=== PATIENT | female | born 1950 | race Caucasian/White ===

== ENCOUNTER 2016-08-03 15:49 | Inpatient (IN) | payer MEDICARE, OTHER ==
[~2016-08-03] VITALS: Ht 154.9 cm; Wt 62.1 kg
--- NOTE | 2016-08-03 16:00 | NUR ---
ARRIVE TO ROOM VIA WHEELCHAIR FROM DOCTOR'S OFFICE. DENIES SOB OR PAIN. AT BEDSIDE. XRAY ARRIVE TO ROOM FOR CHEST XRAY. SCDs IN ROOM, REFUSE TO WEAR AT THIS TIME. CONTROLLED A-FIB 82bpm ON TELEMETRY. IV SITED LT HAND 22G SUCCESSFUL FIRST ATTEMPT. BED LOCKED AND LOW. CALL LIGHT NOT WORKING. MAINTENANCE NOTIFIED. CONTINUE ADMISSION PROCESS.
[2016-08-03] MEDS ORDERED: HYDRALAZINE HCL50 MG PO (16:25)
[2016-08-03] MEDS ORDERED: DIOVAN320 MG PO (16:26)
[2016-08-03] MEDS ORDERED: JANTOVEN3 MG PO (16:28)
[2016-08-03] MEDS ORDERED: KLOR-CON 1010 MEQ PO (16:29)
[2016-08-03] MEDS ORDERED: GLUCOTROL XL 5 M5 MG PO (16:29)
[2016-08-03] MEDS ORDERED: TRADJENTA5 MG PO (16:30)
[2016-08-03] MEDS ORDERED: FUROSEMIDE40 MG PO (16:30)
[2016-08-03] MEDS ORDERED: LIPITOR10 MG PO (16:31)
[2016-08-03] MEDS ORDERED: GLUCOPHAGE500 MG PO (16:32)
[2016-08-03] MEDS ORDERED: COREG6.25 MG PO (16:32)
[2016-08-03] MEDS ORDERED: VITAMIN E400 UNI2 PO (16:34)
[2016-08-03] MEDS ORDERED: LANTUS SOL100 UNIT/1 SC (16:34)
[2016-08-03] MEDS ORDERED: OMEGA 3 FISH OI1 CAP PO (16:35)
[2016-08-03] MEDS ORDERED: BAYER CHEWABLE81 MG PO (16:35)
[2016-08-03] MEDS ORDERED: ACETAMINOPHEN325 MG PO (16:36)
[2016-08-03] MEDS ORDERED: POTASSIUM99 M1 PO (16:37)
[2016-08-03 16:59] LABS: BASOPHILS 0.1 % (0.0-2.0); EOSINOPHILS 1.8 % (0-7); HEMATOCRIT 34.6 % (36.0-48.0); HEMOGLOBIN 11.9 g/dL (12-16); IMMATURE GRANULOCYTES 0.9 % (0-5); LYMPHOCYTES 9.5 % (15-50); MCH 30.1 pg (26.0-34.0); MCHC 34.4 g/dL (31.0-37.0); MCV 87.6 fL (80.0-100.0); MEAN PLATELET VOLUME 9.9 fL (7.4-10.4); MONOCYTES 5.8 % (2-11); NEUTROPHILS 81.9 % (40-80); RBC 3.95 10x6/uL (4.00-5.40); RDW 14.7 % (11.5-14.5)
[2016-08-03 17:02] LABS: PLATELET COUNT 202 10x3/uL (130-400)
[2016-08-03 17:18] LABS: INR 1.04 (0.85-1.17); PROTIME 13.4 SECONDS (11.6-15.0)
[2016-08-03 17:39] LABS: CALC OSMOLALITY 258 mosm/kg (275-300); CALCIUM 8.8 mg/dL (8.5-10.1); CARBON DIOXIDE 27.2 mmol/L (21.0-32.0); CHLORIDE - SERUM 90 mmol/L (98-107); CREATININE - SERUM 0.8 mg/dL (0.6-1.3); POTASSIUM - SERUM 3.4 mmol/L (3.5-5.1); SODIUM 125 mmol/L (136-145); T4 THYROXIN - FREE 1.49 ng/dL (0.76-1.46); UREA NITROGEN 15 mg/dL (7-18); eGFR NON AFRICAN AMERICAN 76 mL/min (90-120)
[2016-08-03 17:40] LABS: GLUCOSE 214 mg/dL (74-106)
[2016-08-03 18:33] VITALS: BP 105/72; BMI 25.9
[2016-08-03 18:42] LABS: THYROID STIMULATING HORMONE 0.84 uIU/mL (0.36-3.74); URIC ACID 4.1 mg/dL (2.6-7.2)
[2016-08-03 23:34] LABS: CREATININE - URINE 27.9 mg/dL (30-125)
[2016-08-03 23:37] LABS: APPEARANCE CLEAR (CLEAR); BILIRUBIN NEGATIVE (NEGATIVE); COLOR YELLOW (YELLOW); GLUCOSE 500 mg/dL (NEGATIVE); KETONE NEGATIVE (NEGATIVE); LEUKOCYTE ESTERASE TRACE (NEGATIVE); NITRITE NEGATIVE (NEGATIVE); PROTEIN NEGATIVE (NEGATIVE); SPECIFIC GRAVITY 1.005 (1.005-1.020); UROBILINOGEN NORMAL (NORMAL)
[2016-08-03 23:41] LABS: BACTERIA FEW /hpf (NONE SEEN); CALCIUM OXALATE CRYSTALS RARE /hpf (NONE SEEN); EPITHELIAL CELLS OCC /hpf (0-5); HYALINE CAST RARE /lpf (NONE SEEN); RED CELLS - URINE OCC /hpf (0-5)
--- NOTE | 2016-08-03 23:55 | NUR ---
NURSE ROUNDS 20:00 - DISCUSSED WITH PTS THEIR CONCERN ABOUT HER PO HOME MEDICATIONS. BECAUSE PT WAS ADMITTED UNDER OBSERVATION STATUS, MEDICARE WILL NOT PAY FOR ANY PO MEDICATIONS. PT AND LIVE IN [place], AND THEY DID NOT BRING HER HOME MEDICATIONS. I EXPLAINED THAT WE CAN MANAGE HER B/P NEEDED BY IV HYDRALAZINE IF NEEDED, AND WE WILL MANAGE PTS BLOOD GLUCOSE WITH S/S INSULIN. PT IS LETHARGIC, AFEBRILE AT THIS TIME, DENIES ANY NEEDS OTHER THAN WANTING TO SLEEP. PTS DID LEAVE TO RETURN HOME TO CHECK ON THEIR DOG AND BRING HER OWN MEDICATIONS FROM HOME IN THE AM BEFORE THE DOCTORS ROUND. U/A COLLECTED ORDERED. CONTINUE TO MONITOR CLOSELY.
[2016-08-04] VITALS: BP 164/96
[2016-08-04 04:00] VITALS: BP 188/85
[2016-08-04 06:40] LABS: MAGNESIUM - SERUM 1.4 mg/dL (1.8-2.4); PHOSPHOROUS 2.5 mg/dL (2.5-4.9)
[2016-08-04 08:20] VITALS: BP 191/83
--- NOTE | 2016-08-04 09:37 | NUR ---
Patient Name: BERE ROBLES Admission Status: Urgent Accout number: [id number] Admission Date: 08-04-2016 : 1950 Admission Diagnosis: Attending: RYAN Current LOS: 1 Anticipated DC Date: Planned Disposition: Home Primary Insurance: MEDICARE A & B LATE ENTRY FROM 08-03-16, 1650 HOURS Discharge Planning Comments: * Is the patient Alert and Oriented? Yes 0 * How many steps to enter\exit or inside your home? 7 0 * PCP DR. KASHMIR [facility] [place] 0 * Pharmacy [facility] [place] OR [facility] ORDER 0 * Preadmission Environment Home with Family 0 * ADLs Independent 0 * Equipment CPAP 0 * Other Equipment [facility] - MEDICAL EQUIPMENT PROVIDER 0 * List name and contact numbers for known caregivers / representatives who currently or will assist patient after discharge: CHRISTI ROBLES, SPOUSE, 0 * Community resources currently utilized None 0 * Please name any agencies selected above. NONE 0 * Additional services required to return to the preadmission environment? No 0 * Can the patient safely return to the preadmission environment? Yes 0 * Has this patient been hospitalized within the prior 30 days at any hospital? Yes 0 CM RECEIVED REQUEST TO MEET WITH PT ON 08-03-16 AT APPROXIMATELY 1650 HOURS. CM MET WITH PT AND SPOUSE IN ROOM TO DISCUSS DISCHARGE PLANNING AND NEEDS. PT REPORTS ADMITTED TO OBSERVATION AND CONCERNED THAT INSURANCE NOT PAYING FOR HOME MEDICATIONS. CM VERIFIED THAT IF PT IS IN OBSERVATION STATUS, MEDICARE WILL NOT PAY FOR HOME MEDICATIONS ADMINISTERED BY THE HOSPITAL. 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 PT REPORTS LIVING AT HOME INDEPENDENTLY WITH HER SPOUSE. PT HAS CPAP PROVIDED BY [facility]. PT HAS NO OUTSIDE SERVICES ASSISTING IN THE HOME. CM DISCUSSED AVAILABILITY OF HOME HEALTH, REHAB SERVICES AND MEDICAL EQUIPMENT. PT DENIES DISCHARGE NEEDS, REPORTS HER SPOUSE WILL PICK HER UP FOR DISCHARGE HOME. PT PLANS TO RETURN HOME WITH SPOUSE, NO ANTICIPATED NEEDS. CM TO FOLLOW AND ASSIST NEEDED. Information Technology Professor: Micheal Mario
[2016-08-04 10:49] LABS: CALC OSMOLALITY 268 mosm/kg (275-300); CALCIUM 8.6 mg/dL (8.5-10.1); CARBON DIOXIDE 25.3 mmol/L (21.0-32.0); CHLORIDE - SERUM 96 mmol/L (98-107); CREATININE - SERUM 0.8 mg/dL (0.6-1.3); GLUCOSE 218 mg/dL (74-106); POTASSIUM - SERUM 3.1 mmol/L (3.5-5.1); SODIUM 131 mmol/L (136-145); eGFR NON AFRICAN AMERICAN 76 mL/min (90-120)
[2016-08-04 10:50] LABS: BASOPHILS 0.3 % (0.0-2.0); EOSINOPHILS 4.9 % (0-7); HEMATOCRIT 31.9 % (36.0-48.0); HEMOGLOBIN 10.9 g/dL (12-16); IMMATURE GRANULOCYTES 1.2 % (0-5); LYMPHOCYTES 17.4 % (15-50); MCH 30.1 pg (26.0-34.0); MCHC 34.2 g/dL (31.0-37.0); MCV 88.1 fL (80.0-100.0); MEAN PLATELET VOLUME 10.6 fL (7.4-10.4); MONOCYTES 9.2 % (2-11); PLATELET COUNT 237 10x3/uL (130-400); RBC 3.62 10x6/uL (4.00-5.40)
[2016-08-04 10:51] LABS: UREA NITROGEN 9 mg/dL (7-18)
[2016-08-04 11:08] LABS: WBC 6.7 10x3/uL (4.8-10.8)
[2016-08-04 12:18] VITALS: Ht 154.9 cm; Wt 62.1 kg
--- NOTE | 2016-08-04 14:00 | NUR ---
ARRIVE BACK TO ROOM. SEDATED. AROUSES TO VOICE AND STIMULI. AT BEDSIDE. DENIES PAIN OR SOB. BP-136/76, R-16, P-83, O2-96% RA. CONTROLLED A-FIB ON TELEMETRY. RADIAL PULSE +2 BILATERALLY. PEDAL PULSE +1 NO CHANGE BILATERALLY. TR BAND TO RT WRIST. FREE FROM BLEEDING. NO HEMATOMA. CONTINUE PLAN OF CARE. BED LOCKED AND LOW. CALL LIGHT IN REACH. TWO SIDERAILS UP.
[2016-08-04 16:07] VITALS: BP 142/80
--- NOTE | 2016-08-04 17:50 | NUR ---
RESTING IN BED. DENIES PAIN OR SOB. RT WRIST FREE FROM BLEEDING. TR BAND REMOVED. NO HEMATOMA. DRESSING APPLIED TO PUNCTURE SITE. CONTROLLED A-FIB 86bpm ON TELEMETRY. BED LOCKED AND LOW. CALL LIGHT IN REACH. TWO SIDERAILS UP. PREPAIR SHIFT CHANGE REPORT.
[2016-08-04 19:00] VITALS: BP 139/70
--- NOTE | 2016-08-04 20:50 | NUR ---
PT AWAKE, ALERT, ORIENTED,DENIES ANY NEEDS. PTS RIGHT WRIST HAS A GOOD PULSE, NO BLEEDING, OOZING, OR STREAKING, NO HEMATOMA, DRESSING IS CLEAN DRY AND INTACT. I DID TEACHING TO PT ABOUT UTI'S, CAUSES, PREVENTIONS, AND WHEN TO SEEK MEDICAL HELP. PT DENIES ANY ACUTE NEEDS. CONTINUE TO MONITOR CLOSELY. BED LOW, CALL LIGHT IN REACH, SIDE RAILS X 2, HOB 25 DEGREES.
[2016-08-05] VITALS: BP 149/76
[2016-08-05 04:00] VITALS: BP 168/64
[2016-08-05 06:30] LABS: BASOPHILS 0.3 % (0.0-2.0); HEMATOCRIT 31.5 % (36.0-48.0); HEMOGLOBIN 10.6 g/dL (12-16); IMMATURE GRANULOCYTES 1.3 % (0-5); LYMPHOCYTES 12.1 % (15-50); MCH 29.5 pg (26.0-34.0); MCHC 33.7 g/dL (31.0-37.0); MCV 87.7 fL (80.0-100.0); MEAN PLATELET VOLUME 9.8 fL (7.4-10.4); MONOCYTES 8.1 % (2-11); NEUTROPHILS 73.2 % (40-80); PLATELET COUNT 267 10x3/uL (130-400); RBC 3.59 10x6/uL (4.00-5.40); RDW 15.2 % (11.5-14.5)
--- NOTE | 2016-08-05 06:41 | NUR ---
ASSISTED PT TO BATHROOM WITHOUT ANY DIFFICULTY. PT DEMONSTRATES MILD-MODERATE WEAKNESS. DENIES ANY NEEDS. CONTINUE TO MONITOR CLOSELY.
[2016-08-05 06:53] LABS: CALC OSMOLALITY 261 mosm/kg (275-300); CALCIUM 8.1 mg/dL (8.5-10.1); CARBON DIOXIDE 24.1 mmol/L (21.0-32.0); CHLORIDE - SERUM 97 mmol/L (98-107); CREATININE - SERUM 0.8 mg/dL (0.6-1.3); POTASSIUM - SERUM 3.2 mmol/L (3.5-5.1); SODIUM 130 mmol/L (136-145); UREA NITROGEN 9 mg/dL (7-18); eGFR NON AFRICAN AMERICAN 76 mL/min (90-120)
[2016-08-05 06:54] LABS: GLUCOSE 138 mg/dL (74-106)
[2016-08-05 07:48] VITALS: BP 172/83
[2016-08-05 11:35] VITALS: BP 148/56
--- NOTE | 2016-08-05 13:01 | NUR ---
INTRODUCED SELF TO PT, PT STATES NO NEW NEEDS AT THIS TIME, WILL CONTINUE TO MONITOR, CALL LIGHT WITHIN REACH.
--- NOTE | 2016-08-05 14:11 | NUR ---
PT RESTING QUIETLY WATCHING TV, FAMILY AT BEDSIDE, SIDE RAILS UP X'S 2, BED IN LOW POSITION, CALL LIGHT WITHIN REACH, WILL CONTINUE TO MONITOR.
[2016-08-05] MEDS ORDERED: AUGMENTIN 500-11 TA1 PO (14:16)
--- NOTE | 2016-08-05 14:57 | NUR ---
WENT OVER D/C PAPERS WITH PATIENT AND FAMILY, WAITING ON PT TO RETURN, WILL CALL [facility] TO TRANSFER TO VEHICLE.
--- NOTE | 2016-08-05 15:01 | NUR ---
PT D/C VIA WHEELCHAIR, FAMILY AT SIDE.
--- NOTE | 2016-08-05 15:08 | NUR ---
Patient Name: BERE ROBLES Encounter No: [id number] : 1950 Primary Insurance: MEDICARE A & B Anticipated DC Date: 08-05-2016 Planned Disposition: Home DCP follow-up note: CM MET WITH PT AND SPOUSE IN ROOM TO DISCUSS DISCHARGE NEEDS AND PLANNING. CM DISCUSSED AVAILABILITY OF HOME HEALTH, REHAB SERVICES AND MEDICAL EQUIPMENT. PT DENIES DISCHARGE NEEDS. SPOUSE TO TRANSPORT HOME AT DISCHARGE. IMPORTANT MESSAGE FROM MEDICARE PROVIDED AND EXPLAINED. Micheal Mario, CASE MANAGEMENT
--- NOTE | 2016-08-07 11:12 | DS ---
PATIENT:BERE ROBLES :[birth year] MEDICAL RECORD: [id number] DISCHARGE SUMMARY ADMISSION DATE: 08/04/16 DISCHARGE DATE: 08/05/16 DIAGNOSES: 1. Urinary tract infection. 2. Angina. 3. Coronary artery disease. 4. Atrial fibrillation. 5. Coumadin anticoagulation for atrial fibrillation. 6. Hypertension. 7. Hyperlipidemia. HOSPITAL COURSE: Mrs. Robles presents with chest pain and chest discomfort. She was found to have urinary tract infection impending urosepsis. She received IV Rocephin. Her symptomatology cleared. She was never hemodynamically compromised. She underwent cardiac catheterization revealing stable coronary artery disease. Continue the medical management for her coronary artery disease and hypertension, was changed to p.o. Augmentin for the urinary tract infection, and discharged home to follow up with [facility] in 1 month. TRANSINT:[id number] Voice Confirmation ID: [id number] DOCUMENT ID: [id number] FRANCES MEDINA MD at 1112 CC: [id number] DICTATION DATE: 08/05/16 1136 STUDIO ASSISTANT: 08/05/161950 DIS IN 08/05/16 [facility] [address] [place] [address]
== END 2016-08-05 15:15 | disposition home or self-care (01) | DRG 872 ==
LOC: OBSVTIME → D.M2 15:49 → D.SDCHOLD 15:49 → UNDOADMOB 15:49 → OBSVTIME 15:50 → D.M2 16:01 → D.SDCHOLD 16:01 → D.M2 08-04 08:18 → D.SDCHOLD 08-04 14:33 → D.M2 08-04 14:33
PROVIDERS: Internal Medicine Nephrology; ADMIT Internal Medicine Interventional Cardiology
DX: A41.9 Sepsis, unspecified organism (principal); N39.0 Urinary tract infection, site not specified; E87.1 Hypo-osmolality and hyponatremia; I42.9 Cardiomyopathy, unspecified; Z79.01 Long term (current) use of anticoagulants; I48.2 Chronic atrial fibrillation; I25.10 Atherosclerotic heart disease of native coronary artery without angina pectoris; I11.0 Hypertensive heart disease with heart failure; I50.9 Heart failure, unspecified; E78.5 Hyperlipidemia, unspecified; I07.1 Rheumatic tricuspid insufficiency; E11.9 Type 2 diabetes mellitus without complications; Z79.4 Long term (current) use of insulin; I25.82 Chronic total occlusion of coronary artery